=== PATIENT | female | born 1995 | race Caucasian/White ===

== ENCOUNTER → 2018-04-22 | Outpatient (CLI) | payer BC ==
[2018-04-22 14:17] LABS: Beta HCG, Quantitative, Serum <1 mIU/mL (0-3); Prolactin 16.9 ng/mL
== END | disposition home or self-care (01) ==
LOC: LAB SHORT 13:14 → LAB 13:14
PROVIDERS: Nurse Practitioner Family
DX: O92.6 Galactorrhea (principal); F41.9 Anxiety disorder, unspecified; N91.2 Amenorrhea, unspecified; R11.0 Nausea; R53.83 Other fatigue; R10.2 Pelvic and perineal pain
CPT/HCPCS: 84146; 84702

== ENCOUNTER → 2018-08-05 | Outpatient (CLI) | payer BC ==
[2018-08-07 03:13] LABS: CHLAMYDIA TRACHOMATIS, NAA Negative (Negative); NEISSERIA GONORRHOEAE, NAA Negative (Negative)
== END | disposition home or self-care (01) ==
LOC: LAB 15:15 → LAB SHORT 15:15
PROVIDERS: Obstetrics & Gynecology
DX: Z11.3 Encounter for screening for infections with a predominantly sexual mode of transmission (principal)
CPT/HCPCS: 87491; 87591

== ENCOUNTER → 2020-01-04 | Outpatient (CLI) | payer BC | END | disposition home or self-care (01) | LOC: LAB EV 15:03 → LAB SHORT 15:03 | DX: N39.0 Urinary tract infection, site not specified (principal) | CPT/HCPCS: 87077; 87086; 87186 ==

== ENCOUNTER → 2020-06-20 | Outpatient (CLI) | payer BC ==
[2020-06-23 00:10] LABS: CHLAMYDIA TRACHOMATIS, NAA Negative (Negative)
== END ==
LOC: LAB 18:49 → LAB SHORT 18:49
PROVIDERS: Advanced Practice Midwife
DX: Z11.3 Encounter for screening for infections with a predominantly sexual mode of transmission (principal)
CPT/HCPCS: 87491; 87591

== ENCOUNTER → 2020-11-11 | Outpatient (CLI) | payer BC | END | disposition home or self-care (01) | LOC: LAB SHORT 10:50 | DX: O09.93 Supervision of high risk pregnancy, unspecified, third trimester (principal) | CPT/HCPCS: 87081; 87150 ==

== ENCOUNTER 2020-11-25 13:10 | Inpatient (IN) | payer BC ==
[~2020-11-25] VITALS: Ht 152.4 cm; Wt 68.2 kg
[2020-11-25] MEDS ORDERED: SERT50 PO (15:39)
[2020-11-25] MEDS ORDERED: Lamictal25 MG (15:40)
[2020-11-25] MEDS ORDERED: PRENATAL TABLE1 EAC2 (15:41)
[2020-11-25] MEDS ORDERED: BUPR150ER PO (15:41)
[2020-11-25] MEDS ORDERED: VITAMIN D (15:41)
[2020-11-25 16:34] LABS: BASOPHILS ABSOLUTE AUTO 0.03 K/mm3 (0.00-0.23); BASOPHILS PERCENT AUTO 0 % (0-2); EOSINOPHILS PERCENT AUTO 0 % (0-6); Hematocrit 40.4 % (33.0-51.0); Hemoglobin 13.1 g/dL (11.5-16.0); IMMATURE GRAN ABSOLUTE AUTO 0.06 K/mm3 (0.00-0.10); IMMATURE GRAN PERCENT AUTO 1 % (0-1); LYMPHOCYTES ABSOLUTE AUTO 1.04 K/mm3 (0.84-5.20); LYMPHOCYTES PERCENT AUTO 9 % (21-46); MONOCYTES ABSOLUTE AUTO 0.36 K/mm3 (0.16-1.47); MONOCYTES PERCENT AUTO 3 % (4-13); Mean Corpuscular HGB 27.2 pg (26.0-34.0); Mean Corpuscular HGB Conc 32.4 g/dL (31.5-36.5); Mean Corpuscular Volume 84 fL (80-100); Mean Platelet Volume 11.9 fL (9.1-12.4); NEUTROPHILS ABSOLUTE AUTO 10.69 K/mm3 (1.96-9.15); NEUTROPHILS PERCENT AUTO 88 % (41-73); Platelet Count 296 K/mm3 (150-400); RDW Coefficient Variation 12.8 % (11.7-14.2); RDW Standard Deviation 38.9 fL (35.1-46.3); Red Blood Cell Count 4.81 M/mm3 (3.80-5.20); White Blood Cell Count 12.18 K/mm3 (4.00-11.30)
[2020-11-25 17:23] LABS: SARS-Cov-2 (COVID-19) PCR, MMC NEGATIVE (NEGATIVE)
--- NOTE | 2020-11-26 08:51 | NUR ---
CARES FOR SELF AND WITH CONFIDENCE, ASKS STAFF FOR ASSISTANCE WHEN NEEDED
[2020-11-26] MEDS ORDERED: IBUP800 (15:13)
--- NOTE | 2020-11-26 19:20 | NUR ---
PT DISCHARGED TO HOME
== END 2020-11-26 19:20 | disposition home or self-care (01) | DRG 807 ==
LOC: OBS 13:10 → BC 13:10 → OBS 14:58 → BC 15:01
PROVIDERS: ADMIT Family Medicine
PROC: 10E0XZZ Delivery of Products of Conception, External Approach (ICD-10-PCS; principal; 2020-11-26)
PROC: 10907ZC Drainage of Amniotic Fluid, Therapeutic from Products of Conception, Via Natural or Artificial Opening (ICD-10-PCS; 2020-11-26)
PROC: 3E0R3BZ Introduction of Anesthetic Agent into Spinal Canal, Percutaneous Approach (ICD-10-PCS; 2020-11-26)
PROC: 00HU33Z Insertion of Infusion Device into Spinal Canal, Percutaneous Approach (ICD-10-PCS; 2020-11-26)
DX: O99.344 Other mental disorders complicating childbirth (principal); Z37.0 Single live birth; F41.1 Generalized anxiety disorder; O77.0 Labor and delivery complicated by meconium in amniotic fluid; O69.1XX0 Labor and delivery complicated by cord around neck, with compression, not applicable or unspecified; O71.82 Other specified trauma to perineum and vulva; Z3A.38 38 weeks gestation of pregnancy
CPT/HCPCS: 36415; 51702; 85025; 86850; 86900; 86901; A9270; J1885; J2590; J7120; U0004

== ENCOUNTER → 2022-08-11 | Outpatient (CLI) | payer BC, OTHER ==
[~2022-08-11] MED LIST: BUPR150ER PO; IBUP800; Lamictal25 MG; PRENATAL TABLE1 EAC2; SERT50 PO; VITAMIN D
== END | disposition home or self-care (01) ==
LOC: LAB 20:01 → LAB SHORT 20:01
DX: R30.0 Dysuria (principal)
CPT/HCPCS: 87086

== ENCOUNTER → 2023-08-05 | Outpatient (CLI) | payer OTHER | LOC: LAB SHORT 16:49 → LAB 16:49 | DX: O09.893 Supervision of other high risk pregnancies, third trimester (principal) | CPT/HCPCS: 87081; 87150 ==

== ENCOUNTER 2024-06-20 12:57 | Emergency (ER) | payer OTHER ==
[~2024-06-20] VITALS: Ht 152.4 cm; Wt 64.4 kg
[2024-06-20 13:14] VITALS: BP 89/57
== END 2024-06-20 15:01 | disposition home or self-care (01) ==
LOC: ER 12:57
DX: O99.891 Other specified diseases and conditions complicating pregnancy (principal); R10.9 Unspecified abdominal pain; Z3A.13 13 weeks gestation of pregnancy; V43.52XA Car driver injured in collision with other type car in traffic accident, initial encounter; Z79.899 Other long term (current) drug therapy
CPT/HCPCS: 76801; 84702; 99284-25

== ENCOUNTER → 2024-11-23 | Outpatient (CLI) | payer OTHER | LOC: LAB SHORT 10:17 → LAB 10:17 | DX: O09.93 Supervision of high risk pregnancy, unspecified, third trimester (principal) | CPT/HCPCS: 87081; 87150 ==

== ENCOUNTER → 2025-03-25 | Outpatient (CLI) | payer OTHER ==
[~2025-03-25] MED LIST changes: -IBUP800; +IBUP800 PO
[2025-03-25 19:51] LABS: BASOPHILS ABSOLUTE AUTO 0.05 K/mm3 (0.00-0.23); BASOPHILS PERCENT AUTO 1 % (0-2); EOSINOPHILS ABSOLUTE AUTO 0.10 K/mm3 (0.00-0.68); EOSINOPHILS PERCENT AUTO 2 % (0-6); Hematocrit 39.5 % (33.0-51.0); Hemoglobin 12.8 g/dL (11.5-16.0); IMMATURE GRAN ABSOLUTE AUTO 0.01 K/mm3 (0.00-0.10); IMMATURE GRAN PERCENT AUTO 0 % (0-1); LYMPHOCYTES ABSOLUTE AUTO 2.06 K/mm3 (0.84-5.20); LYMPHOCYTES PERCENT AUTO 36 % (21-46); MONOCYTES ABSOLUTE AUTO 0.43 K/mm3 (0.16-1.47); MONOCYTES PERCENT AUTO 8 % (4-13); Mean Corpuscular HGB Conc 32.4 g/dL (31.5-36.5); Mean Corpuscular Volume 89 fL (80-100); NEUTROPHILS ABSOLUTE AUTO 3.10 K/mm3 (1.96-9.15); NEUTROPHILS PERCENT AUTO 54 % (41-73); NRBC ABSOLUTE 0.00 K/mm3 (0.00-0.02); NRBC Auto 0.0 /100 WBC (0.0-0.2); Platelet Count 303 K/mm3 (150-400); RDW Coefficient Variation 14.7 % (11.7-14.2); RDW Standard Deviation 47.3 fL (35.1-46.3)
[2025-03-25 20:54] LABS: Alanine Aminotransfer (ALT/SGP 33.0 U/L (12-78); Albumin, Blood 4.0 g/dL (3.4-5.0); Albumin/Globulin Ratio 1.1 (0.8-1.8); Anion Gap 10.0 mmol/L (3-11); Aspartate Aminotrans (AST/SGOT 25.0 U/L (12-37); Bilirubin, Total 0.2 mg/dL (0.1-1.0); Blood Urea Nitrogen 17.0 mg/dL (8-24); CO2, Blood 25.0 mmol/L (21-32); Calcium, Blood 8.9 mg/dL (8.5-10.1); Chloride, Blood 107.0 mmol/L (98-108); Creatinine, Blood 0.62 mg/dL (0.40-1.00); Globulin, Blood 3.5 g/dL (2.2-4.0); Glucose, Blood 98.0 mg/dL (70-99); Potassium, Blood 3.8 mmol/L (3.5-5.5); Sodium, Blood 138.0 mmol/L (136-145); Thyroid Stimulating Hormone 0.857 uIU/mL (0.360-4.800); Total Protein, Blood 7.5 g/dL (6.4-8.2)
== END ==
LOC: LAB SHORT 14:08 → LAB 14:08
PROVIDERS: Student in an Organized Health Care Education/Training Program
DX: K59.00 Constipation, unspecified (principal); K92.1 Melena
CPT/HCPCS: 80053; 83036; 84443; 85025

== ENCOUNTER → 2025-03-29 | Outpatient (CLI) | payer OTHER ==
[2025-03-30 13:17] LABS: Stool Occult Bld Immuno 1 Positive (NEGATIVE)
== END ==
LOC: LAB SHORT 16:11 → LAB 16:11
PROVIDERS: Student in an Organized Health Care Education/Training Program
DX: K59.00 Constipation, unspecified (principal); K92.1 Melena
CPT/HCPCS: 82274

== ENCOUNTER 2025-05-28 08:44 | Day surgery (SDC) | payer OTHER ==
[~2025-05-28] VITALS: Ht 152.4 cm; Wt 69.7 kg
[2025-05-28] MEDS ORDERED: DOC250 (09:08)
[2025-05-28] MEDS ORDERED: MIRALAX17 GM PO (09:09)
[2025-05-28] MEDS ORDERED: FentaNYL Citrate 50 MCG/ML 2 ML Injection ONE (09:13)
[2025-05-28] MEDS ORDERED: Midazolam HCl 1MG / ML 2ML Vial ONE (09:13)
[2025-05-28] MEDS ORDERED: Ondansetron HCl 2 MG / ML 2ML Vial ONE (09:14)
[2025-05-28] MEDS ORDERED: Dexamethasone Sod Phos 10 MG/ML 1ML VIAL ONE (09:14)
[2025-05-28] MEDS ORDERED: CeFAZolin Sodium 2,000 MG VIAL ONE (09:22)
[2025-05-28] MEDS ORDERED: Glycopyrrolate 0.2 MG/ML 5ML VIAL ONE (11:06)
[2025-05-28] MEDS ORDERED: Bupivacaine HCl 0.25% 50 ML Vial (NON CHARGE) INJ ONE ×2 (11:20)
--- NOTE | 2025-05-28 12:21 | NUR ---
05/28/[address] IN SPEAKING WITH PT. DISCUSSING SURGERY NAVEEN MENON TAKING PT TO SDU
[2025-05-28 12:26] VITALS: BP 116/78
--- NOTE | 2025-05-28 13:25 | NUR ---
05/28/25 1325 Antonio Kimble PT DENIES PAIN AND NAUSEA AT THIS TIME. PT AGREEABLE TO D/C HOME WITH HER SPOUSE CHAVO.
== END 2025-05-28 13:22 | disposition home or self-care (01) ==
LOC: ORSCSDS 08:44
PROVIDERS: Orthopaedic Surgery
PROC: 01Q60ZZ Repair Radial Nerve, Open Approach (ICD-10-PCS; principal; 2025-05-28 10:00)
DX: S44.92XA Injury of unspecified nerve at shoulder and upper arm level, left arm, initial encounter (principal); M25.532 Pain in left wrist; W26.0XXA Contact with knife, initial encounter; F41.9 Anxiety disorder, unspecified; Z79.899 Other long term (current) drug therapy; E66.9 Obesity, unspecified; Z68.29 Body mass index [BMI] 29.0-29.9, adult
CPT/HCPCS: C1889; J0690; J1100; J2250; J2405; J2704; J3010; J7120